=== PATIENT | female | born 1980 | race African-American/Black ===

== ENCOUNTER 2019-11-27 16:18 | Outpatient (CLI) | payer SELFPAY, OTHER ==
[2019-11-27 17:39] LABS: Hemoglobin 9.8 g/dL (12.0-16.0); Mean Corpuscular Hemoglobin 30.1 pg (27.0-31.0); Mean Platelet Volume 7.3 fL (7.4-10.4); Platelet Count 440 thou/uL (130-400); RBC Distribution Width 12.7 % (11.5-14.5); Red Blood Cell (RBC) Count 3.26 mill/uL (4.20-5.40); White Blood Cell (WBC) Count 17.4 thou/uL (4.8-10.8)
[2019-11-27 17:46] LABS: Prothrombin Time 12.7 sec (12.0-14.7)
[2019-11-27 17:59] LABS: Anion Gap 11 mmol/L (10-20); BUN (Urea Nitrogen) 11 mg/dL (7.0-18.7); Calc. Creatinine Clearance 0 mL/min (70-130); Calcium 8.9 mg/dL (7.8-10.44); Carbon Dioxide 25 mmol/L (22-29); Chloride 104 mmol/L (98-107); Estimated GFR-MDRD Greater than 90; Glucose 86 mg/dL (70-105); Potassium 3.4 mmol/L (3.5-5.1); Sodium 137 mmol/L (136-145)
[2019-11-28 10:41] LABS: SARS-CoV-2 MS2 Positive; SARS-CoV-2 N Gene Negative; SARS-CoV-2 S Gene Negative; SARS-CoV-2 orf1ab Negative
== END 2019-11-27 16:19 | disposition home or self-care (01) ==
LOC: LABBT 16:18
PROVIDERS: ATTEND Urology
DX: Z01.812 Encounter for preprocedural laboratory examination (principal); Z11.59 Encounter for screening for other viral diseases; N20.0 Calculus of kidney
CPT/HCPCS: 80048; 85027; 85610; 85730; 87635; U0003

== ENCOUNTER 2019-12-08 06:16 | Outpatient (CLI) | payer SELFPAY, OTHER ==
[2019-12-08 18:11] LABS: Hemoglobin 11.2 g/dL (12.0-16.0); Mean Corpuscular HGB CONC 34.1 g/dL (32.0-36.0); Mean Corpuscular Hemoglobin 31.9 pg (27.0-31.0); Mean Corpuscular Volume 93.6 fL (78.0-98.0); Mean Platelet Volume 7.1 fL (7.4-10.4); Platelet Count 377 thou/uL (130-400); RBC Distribution Width 14.1 % (11.5-14.5); Red Blood Cell (RBC) Count 3.52 mill/uL (4.20-5.40)
[2019-12-08 18:32] LABS: BHCG - Serum Negative (NEGATIVE); Pregs Control Background? CLEAR/WHITE (CLR/WHITE); Pregs Control Bar Appear? YES (CONTROL BAR)
[2019-12-09 13:57] LABS: SARS-CoV-2 MS2 Positive; SARS-CoV-2 N Gene Negative; SARS-CoV-2 S Gene Negative; SARS-CoV-2 orf1ab Negative
== END 2019-12-08 06:17 | disposition home or self-care (01) ==
LOC: LABBT 06:16
PROVIDERS: ATTEND Urology
DX: Z01.812 Encounter for preprocedural laboratory examination (principal); Z11.59 Encounter for screening for other viral diseases; N20.0 Calculus of kidney
CPT/HCPCS: 84703; 85027; 87635; U0003

== ENCOUNTER 2019-12-10 05:56 | Day surgery (SDC) | payer SELFPAY ==
[2019-11-27 17:00] VITALS: BMI 28.5
[2019-12-10] MEDS ORDERED: Sodium Chloride 0.9% 100 ML ONE (06:24)
[2019-12-10] MEDS ORDERED: cefTRIAXone\\ROCEPHIN 2 GM VIAL ONE (06:24)
[2019-12-10] MEDS ORDERED: Midazolam HCl 2 mg/2 ml Vial ONE (06:53)
[2019-12-10] MEDS ORDERED: Fentanyl 100 MCG/2 ML VIAL ONE ×3 (06:53→09:38)
[2019-12-10] MEDS ORDERED: Iopamidol 50 ML FS ONE (07:18)
--- NOTE | 2019-12-10 07:36 | RAD ---
Abdomen one view HISTORY: Right ureteral calculus. FINDINGS: Large amount of stool throughout the colon partially obscures the renal outlines. Right ureteral stent is in place. Large right mid ureteral calculus is apparent. Calculus at the infe rior pole of the right kidney is obscured. Multiple phleboliths over the pelvis. IMPRESSION : Right ureteral stent is in good radiographic position.
--- NOTE | 2019-12-10 09:40 | RAD ---
RETROGRADE PYELOGRAM: FINDINGS: This is a series of 3 views showing placement of a right ureteral stent in good position. IMPRESSION: Placement of a right ureteral stent which is in good position. POS: EFRAIN
--- NOTE | 2019-12-10 10:22 | OP ---
DATE OF PROCEDURE: 12/10/2019 PREOPERATIVE DIAGNOSES: 1. A 39-year-old female with right proximal ureteral calculi L3 level, ureteral calculi 2.1 x 1.1 cm, right lower pole 6 mm nonobstructing renal calculi. 2. History of Proteus urosepsis. Repeat urine culture and blood culture negative. 3. 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 A 39-year-old female with right proximal ureteral calculi L3 level, ureteral calculi 2.1 x 1.1 cm, right lower pole 6 mm nonobstructing renal calculi. 2. History of Proteus urosepsis. Repeat urine culture and blood culture negative. PROCEDURES PERFORMED: Cystoscopy, right 6 x 28 double-J ureteral stent exchange , rigid and flexible ureteroscopy, pyeloscopy, laser lithotripsy of large right proximal ureteral calculi(modifier 22 secondary to large dense stone) , laser incision of right lower pole posterior infundibular stenosis, 6 x 28 double-J ureteral stent placement, basket extraction of stone debris. ANESTHESIA: General. COMPLICATIONS: None apparent. DISPOSITION: To recovery room in stable condition. SPECIMEN: Stone fragments for chemical analysis. INTRAOPERATIVE FINDINGS: 1. Large right proximal ureteral calculi consistent with CT. 2. Non-identification of right lower pole renal lithiasis seen on previous CT. 3.Occult right posterior lower infundibular stenosis, pyeloscopy of the infundibular stenotic calyx without evidence of renal calculi. INDICATIONS FOR THE PROCEDURE AND HISTORY: Ms. Caballero is a pleasant 39-year-old female, whom I seen as an inpatient consultation as she had history of high fever of 103, renal ultrasound demonstrating mild hydronephrosis. She continued to have significant leukocytosis with bandemia, CT of the abdomen and pelvis which I ordered based on her renal ultrasound finding demonstrated a very large right proximal ureteral calculi, Hounsfield unit 980 with a nonobstructing right lower pole renal calculi. She presents today for ureteroscopy, laser lithotripsy. She has been fully informed regarding possible secondary procedure given large stone nidus, big enough to warrant a PCNL if it was in the renal moiety. She is in full understanding regarding large presentation of ureteral calculi and possible stage intervention. Risks and complications of the procedure reviewed with the patient in detail including, but not limited to, bleeding, pain, infection, injury to adjacent organs, recurrent urosepsis, ureteral renal kidney injury, bleeding, pain, and infection. All questions were answered to her satisfaction and she desired to proceed. DESCRIPTION OF PROCEDURE: After an informed consent was signed, the patient was taken to the operating room, placed in a dorsal lithotomy position with the genital area prepped and draped in the usual surgical sterile fashion. Broad-spectrum antibiotics, Rocephin, were provided target based therapy with a previous urine culture. A 21-Latvian cystoscope was utilized for cystoscopy and the previously placed ureteral stent was removed to the level of the meatus. A 0.035 Sensor wire was then placed into the right upper pole through the stent and the stent subsequently completely removed. A rigid ureteroscopy was performed, she had stent for few weeks. I was able to access the level of the stone with a semi-rigid ureteroscope without difficulty. It was a large stone nidus. Using 365 micron laser fiber at 1.0 joules dust setting, we laser lithotripsied the stone into multiple tiny fragments. As it was a large stone, it required a longer period of ureteroscopy, laser lithotripsy given large stone burden. However, we were able to make progress in an efficient way, and with the stone mostly resolved, and which some of the fragments, it flowed up into the right upper collecting system. We basket extracted those that were amendable in the ureter. As the ureteral stone was near resolved and residual stone nidus likely migrated into the proximal collecting system, decision was made to place a 0.035 second wire super-stiff into the level of the right upper pole. An 11/13-Latvian x 28 cm navigator was passed to the level of the proximal ureter with ease. Flexible pyeloscopy was performed. There were some minute stone fragments that did migrate into the upper pole, there were dustlike caliber. As her CT demonstrates a right lower pole stone, I surveyed the entire collecting system. I did not find a stone nidus consistent with the CT scan. We looked all her collecting system thoroughly. Incidentally noted was a pinhole opening in the right lower posterior infundibulum., Slightly larger than the 365 m laser fiber tip. we gently passed a 365 micron laser fiber at the os of the infundibular, and laser incision was performed. With the passage of the ureteroscope, dilated the infundibular stenotic. No significant bleeding oozing noted. survey of the collecting system of the infundibular stenosis did not house the lower pole stone seen on CT. This stone may have migrated distally and was laser lithotripsied with a large stone nidus is a possibility. We surveyed the collecting system, which demonstrated no significant stone nidus. We surveyed the ureter using the flexible ureteroscope staging the ureter from proximal to distal. There was some stone nidus, which we basket extracted. A large portion of her stone dustlike debris did spontaneously pass through the ureteral sheath. There was one stone nidus about 6 mm, which did migrate into the upper pole, which we laser lithotripsied in the kidney without significant issues. I re-staged the ureter with a rigid ureteroscope and there were no large stones that where large enough to basket or laser lithotripsied, most were dustlike stone debris. There was no evidence of ureteral mucosal trauma. At this time, a 6 x 28 double-J ureteral stent was passed without difficulty. Bladder was completely emptied. Ciprofloxacin 500 mg 1 p.o. twice daily x10 days continue oxybutynin, we will provide Colace, tramadol p.r.n. for discomfort. She will have a KUB next Sunday, if this demonstrates no significant ureteral stone burden of concern, we will perform cysto, stent pull in my office the day after on . Job ID: [id number] [facility] [place]
[2019-12-10] MEDS ORDERED: Phenazopyridine HCl 97.5 MG TABLET ONE (11:05)
[2019-12-10] MEDS ORDERED: Oxybutynin 5 MG TAB ONE (11:05)
[2019-12-10] MEDS ORDERED: Glycopyrrolate 0.2 MG/ML 5 ML SYRINGE ONE (11:32)
[2019-12-10] MEDS ORDERED: PROPOFOL 200 MG/20 ML VIAL ONE (11:32)
[2019-12-10] MEDS ORDERED: Ondansetron PF 4 MG/2 ML Vial ONE (11:32)
[2019-12-10] MEDS ORDERED: Lidocaine 1% PF 5 ML VIAL ONE (11:32)
[2019-12-10] MEDS ORDERED: Dexamethasone 20 MG/5 ML VIAL ONE (11:32)
[2019-12-10] MEDS ORDERED: Rocuronium Bromide 10 MG/ML (10ML VIAL) ONE (11:32)
== END 2019-12-10 11:33 | disposition home or self-care (01) ==
LOC: SDC 05:56
PROVIDERS: ATTEND Urology
DX: N20.2 Calculus of kidney with calculus of ureter (principal); N39.0 Urinary tract infection, site not specified; N17.9 Acute kidney failure, unspecified; F41.9 Anxiety disorder, unspecified; D72.825 Bandemia; Z79.899 Other long term (current) drug therapy; Z87.891 Personal history of nicotine dependence; Z91.018 Allergy to other foods
CPT/HCPCS: 74018; 74420; 82365; 88300; J0696; J1100; J2001; J2250; J2405; J2704; J3010; J3490; Q9967

== ENCOUNTER 2019-12-17 16:14 | Outpatient (CLI) | payer SELFPAY ==
--- NOTE | 2019-12-17 16:32 | RAD ---
Exam: 1 views abdomen COMPARISON: 12/10/2019 HISTORY: Right ureteral calculus. FINDINGS: Previously noted calcific aeration projecting over the course of the right ureter at the L3 level is less evident. There are multiple calcifications the left and right hemipelvis, unchanged. Stable appearing right-sided double pigtail ureteral stent No evidence of pneumoperitoneum on this supine projection Nonspecific bowel gas pattern. No acute osseous abnormality. IMPRESSION: 1. No radiographic evidence of a previously identified right ureteral stent. 2. Redemonstration of a right-sided double pigtail catheter
== END 2019-12-17 16:15 | disposition home or self-care (01) ==
LOC: BICRAD 16:14
PROVIDERS: ATTEND Urology
DX: N20.0 Calculus of kidney (principal)
CPT/HCPCS: 74018